=== PATIENT | female | born 1990 | race African-American/Black ===

== ENCOUNTER 2018-04-28 12:39 | Inpatient (IN) ==
[2018-04-28 13:33] LABS: AGAP 13; ALBUMIN 4.3 g/dL (3.5-5.0); ALKALINE PHOSPHATASE 44 U/L (32-104); BUN 9 mg/dL (8-22); CALCIUM 9.4 mg/dL (8.8-10.2); CHLORIDE 101 mmol/L (98-107); COSMO 272; CREATININE 0.7 mg/dL (0.5-0.9); ESTIMATED GFR > 60; GLUCOSE 115 mg/dL (70-104); GOT 14 U/L (10-30); GPT 20 U/L (10-36); POTASSIUM 3.6 mmol/L (3.5-5.1); SODIUM 136 mmol/L (136-145); TCO2 22 mmol/L (25-35); TOTAL PROTEIN 7.2 g/dL (6.3-8.3)
[2018-04-28] MEDS ORDERED: NS 1,000 ML IV ONE (13:36)
[2018-04-28] MEDS ORDERED: ZOFRAN IV ONE (13:36)
[2018-04-28 13:38] LABS: BASO# 0.02 X1000 (0.0-0.2); BASO% 0.3 % (0.0-0.8); EOS# 0.07 X1000 (0.0-0.7); HEMATOCRIT 38.3 % (37.0-47.0); IMM GRAN# 0.02 X1000 (0.0-0.04); IMM GRAN% 0.3 % (0.0-0.5); LYMPH% 51.7 % (20.5-51.1); MCH 29.1 PG (27-31); MCHC 33.9 g/dL (33-37); MCV 85.7 FL (81-99); MONO# 0.52 X1000 (0.11-0.59); MONO% 7.1 % (1.7-9.3); MPV 8.8 FL (7.4-10.4); NEUT# 2.92 X1000 (1.4-6.5); NEUT% 39.6 % (42.2-75.2); PLT 282 X1000 (130-400); RBC 4.47 XMIL (4.2-5.4); RDW 13.2 % (11.5-14.5); WBC 7.35 X1000 (4.8-10.8)
[2018-04-28 13:50] LABS: BILIRUBIN URINE NEGATIVE (NEGATIVE); BLOOD URINE TRACE (NEGATIVE); CLARITY CLEAR (CLEAR); COLOR YELLOW; GLUCOSE URINE NEGATIVE (NEGATIVE); KETONE URINE 2+(Moderate) mg/dL (NEGATIVE); LEUKOCYTES URINE TRACE (NEGATIVE); NITRITE URINE NEGATIVE (NEGATIVE); PROTEIN URINE TRACE mg/dL (NEGATIVE); SP GRAVITY URINE 1.015; UROBILINOGEN URINE NORMAL
[2018-04-28 14:02] LABS: URINE BACTERIA 2+ /HFP; URINE CAST GRANULAR PRESENT /LPF; URINE EPITHELIAL CELLS <10 /HPF (<10); URINE RBC <10 /HPF (<10)
[2018-04-28 14:04] LABS: URINE SOURCE CATH
[2018-04-28] MEDS ORDERED: PHENERGAN IV ONE ×3 (14:38→19:04)
[2018-04-28] MEDS ORDERED: SODIUM CHLORIDE 0.9% INJ ONE ×3 (14:38→19:04)
--- NOTE | 2018-04-28 15:30 | Diag Imaging Result Doc PS360 ---
EXAM: US OBS COMPLETE < 14 WKS - 04/28/2018 HISTORY: vag bleed, TECHNIQUE: Obstetrical ultrasound less than 14 weeks. Exam performed using transabdominal probe. According to the technologist, the patient refused imaging utilizing the endovaginal probe. COMPARISON: None. FINDINGS: The uterus measures 11.5 x 6.8 x 6.5 cm in size. There is no visible intrauterine . The endometrial echo appears to measure 2.2 cm in thickness. There is ill-defined heterogeneous material along the right side of the uterus. This appears to measure approximately 8.3 x 5.8 x 7 cm in size. Neither ovary is discretely visualized. There is no discrete free fluid identified. IMPRESSION: No visible intrauterine . Please note that imaging using the endovaginal probe may be more sensitive for the detection of early intrauterine than transabdominal imaging. Ill-defined heterogeneous material along right side of uterus. This is of uncertain etiology but conceivably could represent a mass and/or hematoma. Correlation with clinical evaluation is recommended. Electronically signed by Rojas Perez 04/28/2018 3:27 PM
--- NOTE | 2018-04-28 17:15 | Diag Imaging Result Doc PS360 ---
EXAM: US TRANSVAGINAL OB - 04/28/2018 HISTORY: vag bleeding, abd pain TECHNIQUE: Endovaginal obstetrical ultrasound less than 14 weeks COMPARISON: 04/28/2018 transabdominal obstetrical ultrasound is 14 weeks FINDINGS: There is no visible intrauterine . The dual layer endometrial thickness measures 2.7 cm. There is a 7.6 x 5.3 x 5 cm primarily solid appearing structure at the right side of the uterus. This has appearance somewhat similar to the uterus, with possible endometrial echo. This may represent the second horn of a bicornuate uterus, rather than a mass. If so, there also is no visible intrauterine in this second horn. Neither ovary is discretely visualized. There is a small amount of free fluid in the pelvis. IMPRESSION: The patient may have a bicornuate uterus. If so, there is no visible intrauterine in either horn. Neither ovary is discretely visualized. There is a small amount of free fluid in the pelvis. Correlation with serial quantitative beta hCG levels and follow-up ultrasound is recommended. Electronically signed by Rojas Perez 04/28/2018 5:12 PM
--- NOTE | 2018-04-28 18:15 | PROVIDER DOCUMENTATION ---
This chart was entered by Miriam Lipscomb Scribe, acting as scribe for Murali Mcdermott CRNP. HPI-General Adult - General Chief Complaint: Female Stated Complaint: 7WKS PREG. ABD PAIN Time Seen by Provider: 04/28/18 13:05 Source: patient Allergies/Adverse Reactions: Patient Allergies Allergy/AdvReac Type Severity Reaction Status Date / Time cefaclor [From Ceclor] Allergy Severe HIVES Verified 04/28/18 13:36 Home Medications: Home Medication List Medication Instructions Recorded Confirmed Last Taken Type Vit #76/Iron,Carb/FA 1 tab PO DAILY 04/28/18 04/28/18 04/27/18 History [Prenatabs Rx Tablet] - History of Present Illness -Gen Adult Nature of Presenting Problems: 27 y/o female presents to ED with abdominal cramping and syncope onset just prior to arrival. Pt reports vaginal spotting 3 days ago. Pt states her last menstrual period was 03/09/2018 and that she is 7 weeks . Pt reports she had a bowel movement, then lost consciousness when standing up afterwards. Pt is alert and oriented. Location of Pain/Injury: reports: abdomen Pain Radiation: reports: no radiation Quality of Pain: reports: cramping Severity: reports: mild Onset/Duration: reports: just prior to arrival, 3 days ago Timing: reports: still present Context/Activities at Onset: reports: none Modifying Factors: worse with: palpation Associated Symptoms: reports: syncope, other (abdominal cramping, vaginal spotting) Similar Symptoms Previously?: No Recently seen or treated by another doctor?: No Review of Systems - Adult - REVIEW OF SYSTEMS - ADULT Constitutional: denies: chills, fever Eyes: reports: no symptoms reported Ears, Nose, Mouth & Throat: reports: no symptoms reported Cardiovascular: denies: chest pain, palpitations Respiratory: denies: cough, shortness of breath Gastrointestinal: reports: abdominal pain. denies: diarrhea, nausea, vomiting Genitourinary: reports: other (vaginal spotting). denies: incontinence Musculoskeletal: denies: back pain, joint pain Integumentary: reports: no symptoms reported Neurological: reports: syncope. denies: dizziness/vertigo, seizure Psychiatric: reports: no symptoms reported Endocrine: reports: no symptoms reported Hematologic/Lymphatic: reports: no symptoms reported Allergic/Immunologic: reports: no symptoms reported All Other Systems: Reviewed and Negative Past History - Adult - PAST MEDICAL HISTORY-ADULT Review of Records: reports: Old Records Reviewed, Nursing Assessment Review, Medications Reviewed Major Childhood Illnesses: reports: denies history Cardiovascular: reports: denies history Respiratory: reports: denies history, asthma Gastrointestinal: reports: denies history Obstetrical/Gynecological: reports: denies history Genitourinary: reports: denies history Musculoskeletal: reports: denies history Neurological: reports: denies history Endocrine/Immune: reports: denies history Other Conditions: reports: denies history - PRIOR SURGERIES/PROCEDURES Surgical/Procedure History: reports: tonsillectomy - IMMUNIZATION STATUS Childhood Immunizations: See Nurse Assessment Flu Vaccine: See Nurse Assessment - FAMILY HISTORY Family History: reviewed, not pertinent - SOCIAL HISTORY Smoking: quit less than 1 year Substance Use: marijuana Alcohol Use Frequency: occasionally Living Situation: family Physical Exam-General - PHYSICAL EXAM-ADULT Initial Vital Signs Reviewed: Yes - CONSTITUTIONAL General Appearance: appears well, alert, no apparent distress - EYES Eyes: PERRL/EOMI, pink conjunctivae - HEAD, EARS, NOSE, MOUTH & THROAT HENMT: normocephalic/atraumatic, moist mucous membranes, normal ENT inspection - NECK Neck: non-tender, full range of motion - RESPIRATORY Respiratory: chest non-tender, lungs clear, normal breath sounds - CARDIOVASCULAR Cardiovascular: normal peripheral pulses, regular rate, rhythm - GASTROINTESTINAL (ABDOMEN) Abdominal Exam: normal bowel sounds, soft, tenderness (low abdominal tenderness) - MUSCULOSKELETAL Back Exam: normal inspection, no CVA tenderness Extremity: normal range of motion, non-tender, normal gait - SKIN Integumentary: normal color, warm/dry - NEUROLOGIC Neurologic: grossly normal - PSYCHIATRIC Psych/Mental Status: normal mood/affect, normal thought content, normal thought process Progress - PLAN OF CARE/RESULTS Progress/Plan/Lab Results: Vital Signs - 8 hr 04/28/18 12:41 Temperature 97.5 F L Pulse Rate 79 Respiratory Rate 18 Blood Pressure 108/74 O2 Sat by Pulse Oximetry 100 Bedside Urine ED: Urine Bedside Start: 04/28/18 13:39 Freq: Status: Active Protocol: Activity Type Activity Date Activity User E-Sign Co-Sign Detail Recorded Client Recorded Date Recorded By Document 04/28/18 13:39 [id number] 04/28/18 13:40 [id number] 04/28/18 13:39 Point of Care [Bedside Point of Care] -Lot # HCG [id number] - Results Positive -Control Line Visible? Yes -Additional Comment [id number] Laboratory Results - last 24 hr 04/28/18 04/28/18 04/28/18 12:55 12:55 12:55 WBC 7.35 RBC 4.47 Hgb 13.0 Hct 38.3 MCV 85.7 MCH 29.1 MCHC 33.9 RDW Std Deviation 13.2 Plt Count 282 MPV 8.8 Immature Gran % (Auto) 0.3 Neut % (Auto) 39.6 L Lymph % (Auto) 51.7 H [place] % (Auto) 7.1 Eos % (Auto) 1.0 Baso % (Auto) 0.3 Immature Gran # (Auto) 0.02 Neut # (Auto) 2.92 Lymph # (Auto) 3.80 H [place] # (Auto) 0.52 Eos # (Auto) 0.07 Baso # (Auto) 0.02 Sodium 136 Potassium 3.6 Chloride 101 Carbon Dioxide 22 L Anion Gap 13 BUN 9 Creatinine 0.7 Estimated GFR/1.73 m2 > 60 BUN/Creatinine Ratio 13 Glucose 115 H Calculated Osmolality 272 Calcium 9.4 Total Bilirubin 0.40 AST 14 ALT 20 Alkaline Phosphatase 44 Total Protein 7.2 Albumin 4.3 Globulin 3.0 Albumin/Globulin Ratio 1.0 Ser , Semi-Qnt 7848.0 Urine Color Urine Clarity Urine pH Ur Specific [place] Urine Protein Urine Ketones Urine Blood Urine Nitrite Urine Bilirubin Urine Urobilinogen Urine WBC Urine Glucose ABO/Rh RhIG Candidate? 04/28/18 04/28/18 12:55 13:15 WBC RBC Hgb Hct MCV MCH MCHC RDW Std Deviation Plt Count MPV Immature Gran % (Auto) Neut % (Auto) Lymph % (Auto) [place] % (Auto) Eos % (Auto) Baso % (Auto) Immature Gran # (Auto) Neut # (Auto) Lymph # (Auto) [place] # (Auto) Eos # (Auto) Baso # (Auto) Sodium Potassium Chloride Carbon Dioxide Anion Gap BUN Creatinine Estimated GFR/1.73 m2 BUN/Creatinine Ratio Glucose Calculated Osmolality Calcium Total Bilirubin AST ALT Alkaline Phosphatase Total Protein Albumin Globulin Albumin/Globulin Ratio Ser , Semi-Qnt Urine Color YELLOW Urine Clarity CLEAR Urine pH 7.0 Ur Specific [place] 1.015 Urine Protein TRACE A Urine Ketones 2+(Moderate) A Urine Blood TRACE Urine Nitrite NEGATIVE Urine Bilirubin NEGATIVE Urine Urobilinogen NORMAL Urine WBC TRACE A Urine Glucose NEGATIVE ABO/Rh B POSITIVE RhIG Candidate? NO Orders Category Date Time Status US OBS COMPLETE < 14 WKS [US] Stat Exams 04/28/18 13:06 Ordered CBC WITH DIFF [HEME] Stat Lab 04/28/18 12:55 Completed COMPREHENSIVE METABOLIC PANEL [CHEM] Stat Lab 04/28/18 12:55 Completed QUANT TEST Stat Lab 04/28/18 12:55 Completed RHOGAM WORKUP [BBK] Stat Lab 04/28/18 12:[address] W/POSS RFLX CULT [URINALYSIS] Stat Lab 04/28/18 13:15 Results 0.9% Sodium Chloride Inj [Ns] 1,000 ml Med 04/28/18 13:36 Active IV 999 mls/hr Ondansetron [Zofran] Med 04/28/18 13:36 Discontinued 4 mg IV NOW ONE Result Diagrams: 04/28/18 12:55 04/28/18 12:55 - REASSESSMENT Reassessment #1 Time Reassessed: 14:38 (Pt states she is still very nauseated. Reports she feels a lot of pressure like she needs to have a BM, but don't need to. Additonal meds ordered. Pt made aware of need for u/s ) Reassessment #2 Time Reassessed: 15:38 (Spoke with pt concerning u/s. States she did not refused transvaginal u/s. Called u/s tech and requested to return and complete transvaginal u/s as previously ordered. ) Reassessment #3 Time Reassessed: 17:20 (reviewed pt with Dr Diggs, who recommends consulting with OB on-call.) - ULTRASOUND (By Radiology) 1 US Study: Pelvic Impression: See EMR Report (No visible intrauterine . Please note that imaging using the endovaginal probe may be more sensitive for the detection of early intrauterine than transabdominal imaging. Ill-defined heterogeneous material along right side of uterus. This is of uncertain etiology but conceivably could represent a mass and/or hematoma. Correlation with clinical evaluation is recommended. Electronically signed by Rojas Perez 04/28/2018 3:27 PM) 2 US Study: Transvaginal Impression: See EMR Report (There is no visible intrauterine . The dual layer endometrial thickness measures 2.7 cm. There is a 7.6 x 5.3 x 5 cm primarily solid appearing structure at the right side of the uterus. This has appearance somewhat similar to the uterus, with possible endometrial echo. This may represent the second horn of a bicornuate uterus, rather than a mass. If so , there also is no visible intrauterine in this second horn. Neither ovary is discretely visualized. There is a small amount of free fluid in the pelvis. IMPRESSION: The patient may have a bicornuate uterus. If so, there is no visible intrauterine in either horn. Neither ovary is discretely visualized. There is a small amount of free fluid in the pelvis. Correlation with serial quantitative beta hCG levels and follow-up ultrasound is recommended. Electronically signed by Rojas Perez 04/28/2018 5:12 PM) - CONSULTS/PCP/HOSPITALIST Notification #1 *Consult/PCP/Hospitalist*: Dr Rajput, OB on-call Time Discussed: 17:29 Consult Disposition: Will see in ED #2 Consult: Dr Rajput Time Discussed: 18:05 (Examined pt in ER, states he wants to admit pt to r/o tubal ) Consult Disposition: Admit Departure - Departure Date of Disposition Decision: 04/28/18 Time of Disposition Decision: 18:05 DIAGNOSIS: Tubal Qualifiers: Intrauterine status: unspecified Laterality: unspecified laterality Qualified Code(s): O00.109 - Unspecified tubal without intrauterine Disposition: ADMITTED INPATIENT 09 Certified Medical Emergency: Emergent Condition: Fair Referrals and Follow-Ups: None,PCP [Primary Care Provider] - - Critical Care Note This patient required my direct & personal management of CC.: No Attestation - Physician/ GARY Attestation Patient care was provided by Advanced Practice Provider:: Yes Advanced Practice Provider:: Murali Mcdermott Advanced Practice Provider documentation review:: The Mid-level provider documentation, treatment plan and medical decision making was reviewed by the physician who agrees with all treatment and medical decision making by the MLP. The physician spent face to face time with patient:: No Advanced Practice Provider documentation review:: Supervising physician onsite and consulted in the evaluation and care of this patient. The physician did not have a face to face encounter with the patient. This chart was documented by the indicated scribe, (Miriam Lipscomb Scribe) and accurately reflects the services I performed and decisions made by , Murali Mcdermott CRNP, as attested by the provider's signature.
[2018-04-28] MEDS ORDERED: D5 LR 1,000 ML IV ONE (18:41)
[2018-04-28] MEDS ORDERED: DEMEROL IV ONE ×2 (18:49→19:04)
--- NOTE | 2018-04-28 19:05 | HISTORY AND PHYSICAL ---
CHIEF COMPLAINT: Lower abdominal pain and spotting. HPI: A 27-year-old 2, para 1, last menstrual period about March 09 making her about 7 weeks gestation, presents complaining of spotting off and on since March and then began having some lower abdominal pain earlier today. The pain began in her lower suprapubic quadrant but then elevated to her upper abdomen. She has not had any blood or clots. She was not having any pain prior to today. SYSTEMS REVIEW: She has been having some nausea and vomiting. Has been unable to keep anything down today. PAST [employer] PERSON HISTORY: She has had Chlamydia in the past. PAST SURGICAL HISTORY: Negative. PAST MEDICAL HISTORY: Negative. CURRENT MEDICATIONS: vitamins. ALLERGIES: Ceclor. PHYSICAL EXAM: Blood pressure is 104/66, pulse is 98. GENERAL APPEARANCE: Mildly ill-appearing patient in mild distress. HEENT: Normocephalic, atraumatic. CARDIOVASCULAR: Regular rate and rhythm. LUNGS: Clear to auscultation. ABDOMEN: Soft, mildly tender to palpation. PELVIS: She does have cervical motion tenderness. She is diffusely tender to palpation in the pelvis. When she initially presented to the emergency room she had a transabdominal ultrasound. This showed a uterus measuring 11.5 x 6.8 x 6.5 cm with a 2.2 cm endometrium. Had also described an ill-defined heterogenous area of material to the right side of the uterus measuring 8.3 x 5.8 x 7 cm. Neither ovary was seen. No free fluid. This mass adjacent to the uterus was felt possibly consistent with a mass or hematoma and the recommendation was to repeat a serial beta HCG and followup ultrasound in a couple of days. The tech then returned to do the vaginal probe ultrasound and this ultrasound felt like the mass adjacent to the uterus was possibly a bicornuate uterus again with no IUP seen. There was a small amount of free fluid noted. Beta HCG was 7848. Hemoglobin is 13, hematocrit 38.3, platelets 282,000. ASSESSMENT: Examination is concerning for ectopic . However, the patient is hemodynamically stable at this point. The ultrasounds are fairly confusing. PLAN: At the minimum, she will be admitted for serial beta HCG and serial hemoglobins. Repeat ultrasound in a.m. We discussed the possibility of proceeding with laparoscopy or laparotomy in the event that she begins to deteriorate. cc: Bubba Rajput MD
[2018-04-29 01:09] LABS: BASO# 0.01 X1000 (0.0-0.2); BASO% 0.1 % (0.0-0.8); HEMATOCRIT 29.1 % (37.0-47.0); HEMOGLOBIN 9.7 g/dL (12.0-16.0); IMM GRAN# 0.03 X1000 (0.0-0.04); IMM GRAN% 0.3 % (0.0-0.5); LYMPH# 1.78 X1000 (1.2-3.4); LYMPH% 17.3 % (20.5-51.1); MCH 28.9 PG (27-31); MCHC 33.3 g/dL (33-37); MCV 86.6 FL (81-99); MONO# 0.45 X1000 (0.11-0.59); MONO% 4.4 % (1.7-9.3); MPV 8.9 FL (7.4-10.4); NEUT# 8.02 X1000 (1.4-6.5); NEUT% 77.9 % (42.2-75.2); PLT 226 X1000 (130-400); RBC 3.36 XMIL (4.2-5.4); RDW 12.8 % (11.5-14.5); WBC 10.29 X1000 (4.8-10.8)
--- NOTE | 2018-04-29 01:59 | OB/GYN PROGRESS NOTE ---
Progress Note [employer] - . Patient Problems: Current Active Problems Problem Status Onset Tubal Acute [employer] Progress Note: Vital Signs - 24 hr 04/28/18 12:41 04/28/18 16:00 04/28/18 18:14 Temperature 97.5 F L 99.5 F Pulse Rate 79 98 H 96 H Respiratory Rate 18 20 20 Blood Pressure 108/74 104/86 104/76 O2 Sat by Pulse Oximetry 100 98 98 04/28/18 20:49 04/29/18 00:00 Temperature 98.6 F 98.4 F Pulse Rate 98 H 92 H Respiratory Rate 20 18 Blood Pressure 96/52 103/59 O2 Sat by Pulse Oximetry 100 100 Bedside Urine ED: Urine Bedside Start: 04/28/18 13:39 Freq: Status: Complete Protocol: Activity Type Activity Date Activity User E-Sign Co-Sign Detail Recorded Client Recorded Date Recorded By Document 04/28/18 13:39 [id number] 04/28/18 13:40 [id number] Edit Status 04/28/18 22:56 [id number] Active=>Complete [id number] 04/28/18 22:56 [id number] 04/28/18 13:39 Point of Care [Bedside Point of Care] -Lot # HCG [id number] - Results Positive -Control Line Visible? Yes -Additional Comment [id number] Laboratory Results - last 24 hr 04/28/18 04/28/18 04/28/18 12:55 12:55 12:55 WBC 7.35 RBC 4.47 Hgb 13.0 Hct 38.3 MCV 85.7 MCH 29.1 MCHC 33.9 RDW Std Deviation 13.2 Plt Count 282 MPV 8.8 Immature Gran % (Auto) 0.3 Neut % (Auto) 39.6 L Lymph % (Auto) 51.7 H [place] % (Auto) 7.1 Eos % (Auto) 1.0 Baso % (Auto) 0.3 Immature Gran # (Auto) 0.02 Neut # (Auto) 2.92 Lymph # (Auto) 3.80 H [place] # (Auto) 0.52 Eos # (Auto) 0.07 Baso # (Auto) 0.02 Sodium 136 Potassium 3.6 Chloride 101 Carbon Dioxide 22 L Anion Gap 13 BUN 9 Creatinine 0.7 Estimated GFR/1.73 m2 > 60 BUN/Creatinine Ratio 13 Glucose 115 H Calculated Osmolality 272 Calcium 9.4 Total Bilirubin 0.40 AST 14 ALT 20 Alkaline Phosphatase 44 Total Protein 7.2 Albumin 4.3 Globulin 3.0 Albumin/Globulin Ratio 1.0 Ser , Semi-Qnt 7848.0 Urine Source Urine Color Urine Clarity Urine pH Ur Specific [place] Urine Protein Urine Ketones Urine Blood Urine Nitrite Urine Bilirubin Urine Urobilinogen Urine Microscopic RBC Urine WBC Urine Microscopic WBC Ur Epithelial Cells Urine Bacteria Urine Casts Urine Glucose Blood Type ABO/Rh Antibody Screen RhIG Candidate? 04/28/18 04/28/18 04/28/18 12:55 13:15 18:46 WBC RBC Hgb Hct MCV MCH MCHC RDW Std Deviation Plt Count MPV Immature Gran % (Auto) Neut % (Auto) Lymph % (Auto) [place] % (Auto) Eos % (Auto) Baso % (Auto) Immature Gran # (Auto) Neut # (Auto) Lymph # (Auto) [place] # (Auto) Eos # (Auto) Baso # (Auto) Sodium Potassium Chloride Carbon Dioxide Anion Gap BUN Creatinine Estimated GFR/1.73 m2 BUN/Creatinine Ratio Glucose Calculated Osmolality Calcium Total Bilirubin AST ALT Alkaline Phosphatase Total Protein Albumin Globulin Albumin/Globulin Ratio Ser , Semi-Qnt Urine Source CATH Urine Color YELLOW Urine Clarity CLEAR Urine pH 7.0 Ur Specific [place] 1.015 Urine Protein TRACE A Urine Ketones 2+(Moderate) A Urine Blood TRACE Urine Nitrite NEGATIVE Urine Bilirubin NEGATIVE Urine Urobilinogen NORMAL Urine Microscopic RBC <10 Urine WBC TRACE A Urine Microscopic WBC 5-10 Ur Epithelial Cells <10 Urine Bacteria 2+ Urine Casts GRANULAR PRESENT Urine Glucose NEGATIVE Blood Type B POSITIVE ABO/Rh B POSITIVE Antibody Screen NEGATIVE RhIG Candidate? NO 04/28/18 04/28/18 04/29/18 19:13 21:45 00:23 WBC 10.29 RBC 3.36 L Hgb 11.4 L 9.9 L 9.7 L Hct 29.1 L D MCV 86.6 MCH 28.9 MCHC 33.3 RDW Std Deviation 12.8 Plt Count 226 MPV 8.9 Immature Gran % (Auto) 0.3 Neut % (Auto) 77.9 H Lymph % (Auto) 17.3 L [place] % (Auto) 4.4 Eos % (Auto) 0.0 Baso % (Auto) 0.1 Immature Gran # (Auto) 0.03 Neut # (Auto) 8.02 H Lymph # (Auto) 1.78 [place] # (Auto) 0.45 Eos # (Auto) 0.00 Baso # (Auto) 0.01 Sodium Potassium Chloride Carbon Dioxide Anion Gap BUN Creatinine Estimated GFR/1.73 m2 BUN/Creatinine Ratio Glucose Calculated Osmolality Calcium Total Bilirubin AST ALT Alkaline Phosphatase Total Protein Albumin Globulin Albumin/Globulin Ratio Ser , Semi-Qnt Urine Source Urine Color Urine Clarity Urine pH Ur Specific [place] Urine Protein Urine Ketones Urine Blood Urine Nitrite Urine Bilirubin Urine Urobilinogen Urine Microscopic RBC Urine WBC Urine Microscopic WBC Ur Epithelial Cells Urine Bacteria Urine Casts Urine Glucose Blood Type ABO/Rh Antibody Screen RhIG Candidate? Reassessing patient secondary to decrease in hemoglobin. Patient reports pain is unchanged. she is still having tenderness in the right lower quadrant. She has not had any more pain medication since she was seen in the Emergency Room. No nausea vomiting. AFVSS [place]: AAOx3 in mild distress, obese HEENT: NCAT CV: S1 S2 normal Lungs: clear Abd: normal bowel sounds. tenderness in RLQ; Ext: no edema Labs reviewed. Hemoglobin decreased from 13 to 11.4 to 9.9 to 9.7; repeat expectedat 6 am Ultrasound repeat - will try to get at 6AM A/P Possible Ectopic abdominal pain Ultrasound repeat this am for reevaluation; labs repeat planned at 6 am. Discussed with patient the possible need for laparoscopy or exploratory laparotomy for evaluation of abdominal pain and evaluation of mass close to the right side of the uterus vs ectopic. Based on decreasing hemoglobin decrease, patient has been counselled and consented for blood products as well as surgical intervention. Patient expresses understanding of care plan.
--- NOTE | 2018-04-29 07:45 | Diag Imaging Result Doc PS360 ---
EXAM: US PELVIC NON-OB COMPLETE HISTORY: possible ectopic TECHNIQUE: Pelvic ultrasound COMPARISON: None. FINDINGS: The uterus measures 10.6 x 6.1 x 5.3 cm. The endometrium is thickened measuring 1.8 cm with the two gallagher combined. No intrauterine gestational sac. The left ovary is not identified. Moderate amount of free fluid and debris in the pelvis large complex area in the right adnexa measuring approximately 6 x 10 cm. IMPRESSION: No intrauterine identified. Large complex area in the right adnexa as well as free fluid and debris in the pelvis may indicate a right-sided ectopic. The ordering physician is being called with the results. Electronically signed by Anuel Carpenter 04/29/2018 7:42 AM
[2018-04-29] MEDS ORDERED: VERSED ONE (07:58)
[2018-04-29] MEDS ORDERED: FENTANYL ONE (07:58)
[2018-04-29] MEDS ORDERED: XYLOCAINE-MPF 2% ONE (07:58)
[2018-04-29] MEDS ORDERED: DIPRIVAN 1% ONE (07:58)
[2018-04-29] MEDS ORDERED: QUELICIN ONE (08:04)
[2018-04-29] MEDS ORDERED: SODIUM CHLORIDE 0.9% INJ ONE (08:07)
[2018-04-29] MEDS ORDERED: PEPCID IV ONE (08:07)
[2018-04-29] MEDS ORDERED: REGLAN IV ONE (08:08)
[2018-04-29] MEDS ORDERED: NS 1,000 ML ONE (08:19)
[2018-04-29] MEDS ORDERED: KEFZOL 2 GM/D5W 2 GM/50 ML IVPB ONE (08:28)
[2018-04-29] MEDS ORDERED: NS 2,000 ML ONE (08:45)
[2018-04-29] MEDS ORDERED: ZOFRAN ONE (08:56)
[2018-04-29] MEDS ORDERED: DECADRON ONE (08:56)
[2018-04-29] MEDS ORDERED: ROBINUL ONE (09:14)
[2018-04-29] MEDS ORDERED: NEOSTIGMINE ONE (09:14)
[2018-04-29] MEDS ORDERED: OFIRMEV 1000 MG/ISOTONIC SOLN 1,000 MG/100 ML BOTTLE ONE (09:36)
[2018-04-29] MEDS ORDERED: AMBIEN PO PRN (09:56)
[2018-04-29] MEDS ORDERED: NORCO-10 PO PRN (09:56)
[2018-04-29] MEDS ORDERED: MORPHINE IM PRN (09:56)
[2018-04-29] MEDS ORDERED: ZOFRAN IV PRN (09:56)
[2018-04-29] MEDS ORDERED: PHENERGAN IM PRN (09:56)
[2018-04-29] MEDS: LR 1,000 ML IV SCH (10:00)
[2018-04-29] MEDS: DEMEROL ONE ×2 (10:00→16:27)
[2018-04-29] MEDS ORDERED: VENTOLIN HFA INH PRN (10:06)
[2018-04-29 10:29] LABS: BILIRUBIN URINE NEGATIVE (NEGATIVE); BLOOD URINE NEGATIVE (NEGATIVE); GLUCOSE URINE NEGATIVE (NEGATIVE); KETONE URINE 3+(Large) mg/dL (NEGATIVE); LEUKOCYTES URINE TRACE (NEGATIVE); NITRITE URINE NEGATIVE (NEGATIVE); PROTEIN URINE TRACE mg/dL (NEGATIVE); SP GRAVITY URINE 1.025; URINE WBC <10 /HPF (<10); UROBILINOGEN URINE NORMAL
[2018-04-29 10:30] LABS: CLARITY VERY CLOUDY (CLEAR); COLOR YELLOW; URINE EPITHELIAL CELLS <10 /HPF (<10); URINE RBC <10 /HPF (<10); URINE SOURCE CATH
[2018-04-29] MEDS: MYLICON PO SCH ×4 (13:31→20:43)
[2018-04-29 14:14] LABS: BASO# 0.01 X1000 (0.0-0.2); BASO% 0.1 % (0.0-0.8); HEMATOCRIT 22.6 % (37.0-47.0); HEMOGLOBIN 7.5 g/dL (12.0-16.0); IMM GRAN# 0.02 X1000 (0.0-0.04); IMM GRAN% 0.2 % (0.0-0.5); LYMPH# 0.94 X1000 (1.2-3.4); LYMPH% 11.2 % (20.5-51.1); MCH 29.2 PG (27-31); MCHC 33.2 g/dL (33-37); MCV 87.9 FL (81-99); MONO# 0.17 X1000 (0.11-0.59); MPV 8.6 FL (7.4-10.4); NEUT# 7.25 X1000 (1.4-6.5); NEUT% 86.5 % (42.2-75.2); PLT 181 X1000 (130-400); RBC 2.57 XMIL (4.2-5.4); RDW 12.9 % (11.5-14.5); WBC 8.39 X1000 (4.8-10.8)
[2018-04-29 14:15] LABS: LYMPHS 11 % (21-51); MONO 2 % (1-9); SEGS 87 % (42-75)
--- NOTE | 2018-04-29 14:41 | OPERATIVE NOTE ---
PROCEDURE DATE: 04/29/2018 PREOPERATIVE DIAGNOSIS: 1. Right ectopic . 2. Hemoperitoneum. POSTOPERATIVE DIAGNOSIS: 1. Right ectopic . 2. Hemoperitoneum. PROCEDURE: Emergency Exploratory laparotomy with right partial salpingectomy and evacuation of hemoperitoneum. SURGEON: Rustam Sanches III, MD. ASSIST: Robel Garrett DO. ANESTHESIA: General, Dr. Lazcano. FINDINGS: Hemoperitoneum. Right ectopic . Normal-appearing uterus as well as both ovaries and normal-appearing left tube. COMPLICATIONS: None. ESTIMATED BLOOD LOSS: 750 mL 50 of which was from surgery, 700 of which was from old clotted blood. DRAINS: Frazier to straight drain. COUNTS: All counts were correct x3. INDICATIONS: Patient is a 27-year-old black female, G2, P1, was diagnosed with ectopic with increasing intraabdominal fluid content as well as debris and as well as increasing pain and hemoglobin that was falling. Clayton in the best interest of the patient we should proceed immediately with a laparotomy for treatment of a right ectopic . Patient counseled about the risks of surgery including bleeding, infection, bowel or bladder injury. DESCRIPTION OF PROCEDURE: Patient was taken to the OR, placed in supine position. General anesthesia was employed. Then patient was prepped and draped in a sterile fashion with placement of Frazier catheter. Then a Pfannenstiel skin incision was made lower abdomen using a scalpel. This was carried down sharply to the fascia layer. Small sae was made in the rectus fascia. This was extended bilaterally by curved Perales scissors. Then blunt and sharp dissection of the superior and inferior aspects of the rectus fascia was accomplished then the rectus muscles divided in the midline. Peritoneal layer was entered bluntly and upon entry into the peritoneal layer was noted that there was a great deal of old clotted blood. Extended the peritoneal incision superiorly and inferiorly with Metzenbaum scissors and then proceeded to use irrigation and clear out the clots in the peritoneum. After exploring the lower abdomen and clearing out as many clots as possible then the O'Omar-O'Clinton retractor was placed into the abdomen and the uterus was identified, right fallopian tube was seen and ectopic was identified. Juan clamp was placed around this and then excised the portion of the fallopian tube including the distal end and then this was excised and placed in a specimen container. This was then ligated using 0 Vicryl in a transfixing stitch. 3-0 Vicryl was then used along the mesosalpinx where there was a tear from Mcconnell placement and good hemostasis was noted there as well. Inspection of the pelvic cavity showed 2 normal appearing ovaries and no other sign of disease and continued irrigation to clear out the clots from upper abdomen and lower abdomen. At this point in time, the peritoneal layer was then closed using 2-0 chromic in a running fashion x1. The rectus muscle was then reapproximated using interrupted stitches of 2-0 chromic. Electrocautery was used to obtain hemostasis around the rectus fascia and then the fascia was closed using 0 Maxon in a running fashion x1. Irrigation was then employed in the subcutaneous layer which was then reapproximated using 2-0 chromic in a running fashion x1 and then the skin was reapproximated using gloria. Patient tolerated the procedure well, was taken recovery room stable condition. All counts were correct x3. cc: MD Bubba Baker III, MD MTDD
[2018-04-29] MEDS: D5 LR 1,000 ML IV SCH (16:23)
[2018-04-29] MEDS: OFIRMEV 1000 MG/ISOTONIC SOLN 1,000 MG/100 ML BOTTLE IV SCH ×2 (16:29→22:56)
[2018-04-29] MEDS ORDERED: NS 500 ML ONE (18:10)
[2018-04-29] MEDS: COLACE PO SCH (20:43)
[2018-04-29] MEDS: PERIDEX MT SCH (22:55)
[2018-04-30] MEDS: OFIRMEV 1000 MG/ISOTONIC SOLN 1,000 MG/100 ML BOTTLE IV SCH ×3 (04:51→16:22)
[2018-04-30] MEDS: LR 1,000 ML IV SCH ×4 (05:13→05:19)
[2018-04-30] MEDS: D5 LR 1,000 ML IV SCH (05:17)
[2018-04-30] MEDS ORDERED: SALINE LOCK IV FLUID XX ONE (07:22)
[2018-04-30 08:33] LABS: BASO# 0.02 X1000 (0.0-0.2); BASO% 0.2 % (0.0-0.8); EOS# 0.02 X1000 (0.0-0.7); EOS% 0.2 % (0.0-10.0); HEMATOCRIT 26.1 % (37.0-47.0); HEMOGLOBIN 8.8 g/dL (12.0-16.0); IMM GRAN# 0.02 X1000 (0.0-0.04); IMM GRAN% 0.2 % (0.0-0.5); LYMPH# 3.12 X1000 (1.2-3.4); MCH 29.3 PG (27-31); MCHC 33.7 g/dL (33-37); MONO# 0.52 X1000 (0.11-0.59); MONO% 5.5 % (1.7-9.3); NEUT# 5.76 X1000 (1.4-6.5); NEUT% 60.9 % (42.2-75.2); PLT 180 X1000 (130-400); RDW 13.1 % (11.5-14.5); WBC 9.46 X1000 (4.8-10.8)
[2018-04-30] MEDS: NORCO-5 PO PRN (09:56)
[2018-04-30] MEDS: MYLICON PO SCH ×4 (09:56→21:33)
[2018-04-30] MEDS: COLACE PO SCH ×2 (09:56→21:33)
[2018-04-30] MEDS: PERIDEX MT SCH ×2 (09:58→21:33)
[2018-05-01 01:10] VITALS: BP 104/61
[2018-05-01] MEDS: NORCO-5 PO PRN (02:45)
[2018-05-01] MEDS: OFIRMEV 1000 MG/ISOTONIC SOLN 1,000 MG/100 ML BOTTLE IV SCH ×2 (02:46→07:40)
[2018-05-01] MEDS: COLACE PO SCH (09:21)
[2018-05-01] MEDS: PERIDEX MT SCH (09:21)
[2018-05-01] MEDS: MYLICON PO SCH (09:22)
--- NOTE | 2018-05-01 11:50 | DISCHARGE SUMMARY ---
ADMISSION DATE: 04/28/2018 DISCHARGE DATE: 05/01/2018 ADMISSION DIAGNOSIS: Abdominal pain, possible ectopic . FINAL DIAGNOSES: 1. Ruptured right ectopic . 2. Anemia secondary to acute blood loss. PROCEDURES: Exploratory laparotomy with right partial salpingectomy for ruptured ectopic , as well as evacuation of hemoperitoneum. BRIEF HISTORY OF THE PRESENT ILLNESS: The patient is a 27-year-old black female, G 2, P 1, last menstrual period on March 09, who presents with complaint of spotting, as well as some lower abdominal pain. The initial ultrasound obtained was unclear as to ectopic or possible bicornuate uterus. The patient has also been having some nausea and vomiting. 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 PAST SURGICAL HISTORY: None. MEDICAL HISTORY: Unremarkable. CURRENT MEDICATIONS: vitamins. PHYSICAL EXAMINATION: Vital Signs: Blood pressure 104/66, pulse of 98. HEENT: Normocephalic, atraumatic. Cardiovascular: Regular rate and rhythm. Lungs: Clear to auscultation. Abdomen: Soft and mildly tender to palpation. Pelvis: No cervical motion tenderness and diffuse tenderness to palpation in the adnexal areas. LABS AND X-RAYS: Ultrasound in the ER showed a uterus measuring 11 cm with a 2.2, endometrial stripe. Quantitative value was 7800. At that point in time upon initial presentation, hemoglobin was 13 and hematocrit 38.3. ASSESSMENT AND PLAN: Concern for possible ectopic . The patient will be admitted and do serial ultrasounds, as well as laboratory studies to evaluate the HCT and hemoglobin levels. Patient was confronted with the possibility of a surgery in the case of a ruptured ectopic . Patient's hemoglobin was noted to drop, and followup ultrasound on the morning of 2018 revealed a large amount of fluid and debris and a large right adnexal mass consistent with an ectopic . Patient was then consented for laparotomy for ruptured ectopic and type and cross 2 units of blood. The surgery was noted to have significant intra- abdominal bleeding with at least 700 mL of old clot and ruptured ectopic right tubal and right partial salpingectomy was performed at the time of surgery. Good hemostasis was noted at that time. We will continue to follow the hemoglobin postop, and she dropped to 7.5, 4 hours after her surgery, so she was transfused 2 units of packed red blood cells. After receiving the packed red blood cells, her hemoglobin increased to 8.8, and patient reported that she felt better. She was advanced on her diet slowly, became ambulatory and, over the course of the next 2 days, was able to advance her diet and have bowel activity. On postop day #2, she reported feeling well, having no issues as far as getting up and moving around and tolerating p.o. She was able to handle oral pain medication. It was felt at this point in time patient could be discharged home. DISCHARGE PLANS: The patient will be discharged home. Have her followup on 05/06/2018 for staple removal. She was instructed on lifting precautions for the next 6 weeks. The patient is to call for any other problems. She was given prescription for clindamycin 150 mg dispensed 14 one p.o. b.i.d., also Clymer 7.5 dispensed 20 no refills, Colace 100 mg dispense 30 with 1 refill, and iron sulfate dispense 30 one p.o. daily with 1 refill. cc: MD Bubba Baker III, MD
== END 2018-05-01 09:50 | disposition home or self-care (01) | DRG 817 ==
LOC: P.ED 12:39 → P.MEDSURG 12:39 → OBSVTOIN 20:28
PROVIDERS: ADMIT Obstetrics & Gynecology; ATTEND Obstetrics & Gynecology
CPT/HCPCS: 36430; 76801; 76817; 76856; 80053; 81001; 81025; 84702; 85018; 85025; 86850; 86900; 86901; 86920; 87077; 87088; 87186; 94799; 96374; 96375; 96376; 99285; A9270; J0131; J0330; J0690; J1100; J2175; J2250; J2270; J2405; J2550; J3010; J7030; J7040; J7120; J7121; P9016

== ENCOUNTER 2019-03-25 22:02 | Inpatient (IN) ==
--- NOTE | 2019-03-25 22:19 | PROVIDER DOCUMENTATION ---
This chart was entered by Nisa Gonzales Scribe, acting as scribe for Gaurav Niño MD. HPI-Female /OB/Breast - General Stated Complaint: OB Time Seen by Provider: 03/25/19 22:04 Source: reports: patient Allergies/Adverse Reactions: Patient Allergies Allergy/AdvReac Type Severity Reaction Status Date / Time cefaclor [From Ceclor] Allergy Severe HIVES Verified 03/21/19 08:58 Home Medications: Home Medication List Medication Instructions Recorded Confirmed Last Taken Type multivit no.42-iron 38 1 cap PO QDAY 10/09/18 03/21/19 Unknown History mg-methyltetrahydfolate 1 mg-dha 225 mg capsule - History of Present Illness-Female /OB Nature of Presenting Problem: pt is a 28 yr old female presenting with complaint of contractions onset 1929, fluid leaking, mucus plug lost and bloody show. pt reports she is 39w3d, with ectopic 05/2018. pt reports contractions getting closer and stronger, now 6min apart Does patient report she is ?: Yes Quality of Pain: reports: cramping Severity in ED: reports: moderate Onset/Duration: reports: this evening (1929) Timing: reports: still present Context/Activities at Onset: reports: light activity Vaginal Symptoms: reports: discharge (bloody show, mucus plug lost) Vaginal Bleeding Amount: None Urinary Symptoms: reports: no symptoms Related Symptoms: reports: vaginal fluid leakage, uterine contractions Leakage of Fluid: mild (while in bathtub) Modifying Factors: improves with: nothing Associated Symptoms: denies: fever/chills, nausea, vomiting - LMP/ History Menstrual Status: currently : 3 Para: 1 : 1 Care: OB doctor Contractions/Pelvic Pain: reports: moderate, regular Contraction Frequency (every____min): 6 Contraction Duration (mins): 1 Review of Systems - Adult - REVIEW OF SYSTEMS - ADULT Constitutional: reports: no symptoms reported Eyes: reports: no symptoms reported Ears, Nose, Mouth & Throat: reports: no symptoms reported Cardiovascular: reports: no symptoms reported Respiratory: reports: no symptoms reported Gastrointestinal: reports: abdominal pain Genitourinary: reports: no symptoms reported Musculoskeletal: reports: no symptoms reported Integumentary: reports: no symptoms reported Neurological: reports: no symptoms reported Psychiatric: reports: no symptoms reported Endocrine: reports: no symptoms reported Hematologic/Lymphatic: reports: no symptoms reported Allergic/Immunologic: reports: no symptoms reported All Other Systems: Reviewed and Negative Past History - Adult - PAST MEDICAL HISTORY-ADULT Review of Records: reports: Old Records Reviewed, Nursing Assessment Review, Medications Reviewed, Social history reviewed & non-contributory. Major Childhood Illnesses: reports: denies history Cardiovascular: reports: denies history Respiratory: reports: asthma Gastrointestinal: reports: denies history Obstetrical/Gynecological: reports: denies history Genitourinary: reports: denies history Musculoskeletal: reports: denies history Neurological: reports: denies history Endocrine/Immune: reports: denies history Other Conditions: reports: denies history - PRIOR SURGERIES/PROCEDURES Surgical/Procedure History: reports: tonsillectomy - IMMUNIZATION STATUS Childhood Immunizations: See Nurse Assessment Flu Vaccine: See Nurse Assessment - FAMILY HISTORY Family History: reviewed, not pertinent - SOCIAL HISTORY Living Situation: family Physical Exam-General - PHYSICAL EXAM-ADULT Initial Vital Signs Reviewed: Yes - CONSTITUTIONAL General Appearance: appears well, alert, no apparent distress, obese - EYES Eyes: PERRL/EOMI - HEAD, EARS, NOSE, MOUTH & THROAT HENMT: normocephalic/atraumatic, moist mucous membranes - NECK Neck: non-tender, full range of motion, supple, normal inspection - RESPIRATORY Respiratory: lungs clear, normal breath sounds - CARDIOVASCULAR Cardiovascular: normal peripheral pulses, regular rate, rhythm - GASTROINTESTINAL (ABDOMEN) Abdominal Exam: other ( abdomen) - GENITOURINARY Female Genitalia/Pelvic Exam: blood, other (2cm anterior cervix,) - LYMPHATIC Lymphatic: no adenopathy - MUSCULOSKELETAL Back Exam: normal inspection Extremity: normal range of motion, non-tender, normal gait, normal inspection - SKIN Integumentary: normal color, normal turgor, warm/dry - NEUROLOGIC Neurologic: grossly normal, no motor/sensory deficits - PSYCHIATRIC Psych/Mental Status: normal mood/affect Progress - PLAN OF CARE/RESULTS Progress/Plan/Lab Results: Vital Signs - 8 hr 03/25/19 22:06 Temperature 98.2 F Pulse Rate 91 H Respiratory Rate 20 Blood Pressure 142/81 O2 Sat by Pulse Oximetry 98 - CONSULTS/PCP/HOSPITALIST Notification #1 *Consult/PCP/Hospitalist*: Dr Garrett Time Discussed: 22:10 Reason/Comments: plan of care for pt transfer Consult Disposition: other (transfer to L/D at [facility]) Departure - Departure Date of Disposition Decision: 03/25/19 Time of Disposition Decision: 22:18 DIAGNOSIS: Active labor at term Disposition: ADMITTED INPATIENT 09 Certified Medical Emergency: Emergent Condition: Fair Referrals and Follow-Ups: None,PCP [Primary Care Provider] - - Critical Care Note This patient required my direct & personal management of CC.: No Attestation - Physician/ GARY Attestation Patient care was provided by Advanced Practice Provider:: No The physician spent face to face time with patient:: Yes Advanced Practice Provider documentation review:: Supervising physician onsite and consulted in the evaluation and care of this patient. The physician did have a face to face encounter with the patient. This chart was documented by the indicated scribe, (Nisa Gonzales, Anderson) and accurately reflects the services I performed and decisions made by me, Gaurav Niño MD, as attested by the provider's signature.
[2019-03-25 23:18] LABS: URINE SOURCE VOIDED
[2019-03-25 23:22] LABS: BILIRUBIN URINE NEGATIVE (NEGATIVE); BLOOD URINE NEGATIVE (NEGATIVE); COLOR YELLOW; GLUCOSE URINE NEGATIVE (NEGATIVE); KETONE URINE NEGATIVE (NEGATIVE); LEUKOCYTES URINE SMALL (NEGATIVE); NITRITE URINE NEGATIVE (NEGATIVE); PH URINE 6.5; PROTEIN URINE TRACE mg/dL (NEGATIVE); SP GRAVITY URINE 1.025; TURBIDITY URINE CLEAR (CLEAR); UROBILINOGEN URINE 2 mg/dL (NORMAL)
[2019-03-25] MEDS ORDERED: PEPCID IV PRN (23:40)
[2019-03-25] MEDS ORDERED: PEPCID PO ONE (23:40)
[2019-03-25] MEDS ORDERED: STADOL IV PRN (23:40)
[2019-03-25] MEDS ORDERED: REGLAN PO ONE (23:40)
[2019-03-25] MEDS ORDERED: ZOFRAN IV PRN (23:40)
[2019-03-25] MEDS ORDERED: PEPCID PO PRN (23:40)
[2019-03-25] MEDS ORDERED: PITOCIN 30 UNITS/NS 30 UNIT/500 ML IV.SOLN IV SCH (23:45)
[2019-03-25] MEDS ORDERED: LR 1,000 ML IV SCH (23:45)
[2019-03-25] MEDS ORDERED: SODIUM CHLORIDE 0.9% INJ SCH (23:45)
[2019-03-25 23:51] LABS: UR AMPHETAMINES QUAL NONE DETECTED (NONE DETECT); UR BARBITUATES QUAL NONE DETECTED (NONE DETECT); UR BENZODIAZEPIN QUAL NONE DETECTED (NONE DETECT); UR CANNABINOIDS QUAL NONE DETECTED (NONE DETECT); UR COCAINE QUAL NONE DETECTED (NONE DETECT); UR METHADONE QUAL NONE DETECTED (NONE DETECT); UR OPIATES QUAL NONE DETECTED (NONE DETECT); UR OXYCODONE QUAL NONE DETECTED (NONE DETECT); UR PCP QUAL NONE DETECTED (NONE DETECT)
[2019-03-26 00:08] LABS: BASO# 0.03 X1000 (0.0-0.2); BASO% 0.4 % (0.0-0.8); EOS# 0.05 X1000 (0.0-0.7); EOS% 0.7 % (0.0-10.0); HEMOGLOBIN 13.7 g/dL (12.0-16.0); IMM GRAN# 0.05 X1000 (0.0-0.04); IMM GRAN% 0.7 % (0.0-0.5); LYMPH# 2.46 X1000 (1.2-3.4); LYMPH% 33.2 % (20.5-51.1); MCH 28.3 PG (27-31); MCHC 32.6 g/dL (33-37); MCV 86.8 FL (81-99); MONO# 0.53 X1000 (0.11-0.59); MONO% 7.1 % (1.7-9.3); MPV 10.2 FL (7.4-10.4); NEUT% 57.9 % (42.2-75.2); PLT 209 X1000 (130-400); RBC 4.84 XMIL (4.2-5.4); RDW 14.8 % (11.5-14.5); WBC 7.42 X1000 (4.8-10.8)
[2019-03-26] MEDS ORDERED: NAROPIN 0.2% INJ ONE (01:47)
[2019-03-26] MEDS ORDERED: FENTANYL-BUPIV-NS 500 MCG-0.125% 250 ML EPIDURAL SCH (02:00)
[2019-03-26] MEDS ORDERED: CYTOTEC PO PRN (02:19)
[2019-03-26] MEDS ORDERED: AMBIEN PO PRN (02:19)
[2019-03-26] MEDS ORDERED: ATARAX PO PRN (02:19)
[2019-03-26] MEDS ORDERED: M-M-R II VACCINE SUBQ ONE (02:19)
[2019-03-26] MEDS ORDERED: BENADRYL IV PRN (02:19)
[2019-03-26] MEDS ORDERED: BENADRYL PO PRN (02:19)
[2019-03-26] MEDS ORDERED: PITOCIN IM PRN (02:19)
[2019-03-26] MEDS ORDERED: HYDROXYZINE IM PRN (02:19)
[2019-03-26] MEDS ORDERED: BOOSTRIX VACCINE IM ONE (02:19)
[2019-03-26] MEDS ORDERED: XYLOCAINE-MPF 1% INJ PRN (02:19)
[2019-03-26] MEDS ORDERED: MINERAL OIL PO PRN (02:19)
[2019-03-26] MEDS ORDERED: PERI MEDS (DERMOPLAST/NUPERCAINAL/TUCKS) MISC PRN (02:19)
[2019-03-26] MEDS ORDERED: PITOCIN 20 UNITS/NS 20 UNITS/1,000 ML IV.SOLN IV SCH (02:30)
[2019-03-26] MEDS: PITOCIN 30 UNITS/NS 30 UNIT/500 ML IV.SOLN IV SCH ×3 (02:40→10:30)
--- NOTE | 2019-03-26 04:29 | HISTORY AND PHYSICAL ---
HISTORY OF PRESENT ILLNESS: Ms. Claire is a 28-year-old G3, P1, 0-1-1 at 39 weeks and 2 days who presents to Labor and Delivery in active labor. The patient reports regular contractions. Good movement. Unsure of leakage of fluid. Admits to loss of mucus plug. Denies vaginal bleeding. Admits to uncomplicated . labs showed negative nonreactive RPR. Rubella immune. Gonorrhea and Chlamydia negative. Hepatitis B nonreactive. Hepatitis C nonreactive. HIV nonreactive. Urine drug screen positive for THC on 08/12/2018. Urine drug screen negative on 03/25/2019. MEDICATIONS: vitamins. ALLERGIES: Cefaclor, reaction hives. PAST MEDICAL HISTORY: Asthma. PAST SURGICAL HISTORY: Left salpingo-oophorectomy, tonsillectomy, adenoidectomy. FAMILY HISTORY: Grandmother with diabetes. SOCIAL HISTORY: Denies tobacco or alcohol use. Admits to marijuana use. OBSTETRICAL HISTORY: G3, P1, 0-1-1. One prior ectopic . One prior full-term delivery at 39 weeks. Baby weighed 7 pounds 6 ounces. Male with no complications. 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 Denies STD exposure. Menarche age 14. PHYSICAL EXAMINATION: VITAL SIGNS: Temperature 98.2 degrees Fahrenheit, pulse rate 91, respiration rate 20, blood pressure 142/81, O2 sats 98% on room air. Height 5 feet 5 inches, and weight 276 pounds. GENERAL: No acute distress. Alert, awake, and oriented x3. RESPIRATORY: Clear to auscultation bilaterally. Negative rhonchi, rales, or wheezing. CARDIOVASCULAR: Regular rate and rhythm. Positive S1, S2. ABDOMEN: Gravid. Nontender to palpation. Soft. VAGINAL: 9 cm dilated, 100% effaced, -1 station. Intact membranes. EXTREMITIES: Lower extremities with 1+ edema. Negative calf tenderness. LABORATORY: WBCs 7.42, hemoglobin 13.7, hematocrit 42, and platelets 209,000. ASSESSMENT: Ms. Claire is a 28-year-old G3, P1, 0-1-1 at 39 weeks 2 days who presents to Labor and Delivery in active labor. PLAN: 1. Admit to Labor and Delivery. 2. Obtain routine labor labs. 3. Continuous external monitoring. 4. Augmentation of labor with artificial rupture of membrane and/or Pitocin. 5. Patient counseled on risks, benefits, and alternatives of vaginal delivery. Risks not limited to infection, bleeding, vaginal laceration, vacuum delivery or emergency delivery. The patient understands risks and agrees to procedure. Estimated weight 7.5 pounds. 6. Anticipate vaginal delivery.
[2019-03-26] MEDS: MOTRIN PO PRN ×2 (04:59→15:50)
--- NOTE | 2019-03-26 05:07 | OPERATIVE NOTE ---
PROCEDURE DATE: 03/26/2019 PROCEDURE PERFORMED: Spontaneous vaginal delivery. SURGEON: Dr. Robel Garrett [employer] ARCHITECT: None. DESCRIPTION OF PROCEDURE: The patient delivered a viable 39 week 2 day girl weighing 8 pounds 9 ounces with Apgars of 8 and 9 at 1 and 5 minutes respectively. The vertex delivered over intact perineum. Anterior shoulders delivered with the assistance of maternal expulsive efforts and downward traction. The posterior shoulder was delivered with maternal expulsive efforts and upward traction. Remainder of fetus delivered, and placed on the patient's abdomen awaiting pediatricians assessed . No nuchal cord was noted status post delivery of vertex. Cord was cut and clamped. Cord blood was obtained for blood gas analysis. The placenta delivered spontaneously with a three-vessel cord intact. Uterine fundal massage was applied after delivery, and IV oxytocin was administered to assist with uterine contraction. Vagina, cervix, and perineum were assessed for lacerations. No lacerations were noted. Count was correct x2. Estimated Blood Loss 200 mL.
--- NOTE | 2019-03-26 08:11 | OB/GYN PROGRESS NOTE ---
- Subjective 28 yo PPD#0 s/p at 39w2d Patient seen and examined. This morning pt states she is feeling well with mild vulvar/vaginal soreness. Lochia is mild and bright red with no odor. Pt is well. She had concerns about waking baby for and was counseled that she should wake baby at 3h if baby does not wake up to feed. Pt denies fever, chills, chest pain, SOB, GI sx and calf pain. She plans for micronor for PP contraception. OB Physical Exam Vital Signs - 8 hr 03/26/19 02:15 03/26/19 02:25 03/26/19 02:35 Temperature 97.0 F L Pulse Rate 82 86 76 Respiratory Rate 18 18 18 Blood Pressure 146/66 134/62 160/70 03/26/19 02:45 03/26/19 02:55 03/26/19 03:05 Temperature Pulse Rate 71 76 71 Respiratory Rate 18 18 18 Blood Pressure 148/69 125/60 126/73 03/26/19 03:15 03/26/19 03:49 Temperature 98.5 F Pulse Rate 76 67 Respiratory Rate 18 18 Blood Pressure 127/88 138/82 - CONSTITUTIONAL General Appearance: appears well, no apparent distress - HEAD, EARS, NOSE, MOUTH & THROAT HENMT: normocephalic/atraumatic, moist mucous membranes - RESPIRATORY Respiratory: lungs clear, normal breath sounds, no pleuratic chest pain, no respiratory distress - CARDIOVASCULAR Cardiovascular: normal peripheral pulses, regular rate, rhythm, no edema - GASTROINTESTINAL (ABDOMEN) Abdominal Exam: normal bowel sounds, non tender, other (Uterus palpable at level of umbilicus, non-tender.) - MUSCULOSKELETAL Extremity: normal range of motion, non-tender, no pedal edema, no calf tenderness - NEUROLOGIC Neurologic: grossly normal - PSYCHIATRIC Psych/Mental Status: normal mood/affect Active Medications Generic Name Dose Route Start Last Admin Trade Name Freq PRN Reason Stop Dose Admin Acetaminophen 650 mg 03/25/19 23:40 Tylenol PO Q4-6H PRN PRN Headache Benzocaine 1 each 03/26/19 02:19 Aleida Meds (Dermoplast/Nupercainal/Tucks) MISC 3-4XDAY PRN PRN episiotomy/hemorrhoids Diphenhydramine HCl 25 mg 03/26/19 02:19 Benadryl PO Q4H PRN PRN Itching Famotidine 40 mg 03/25/19 23:40 Pepcid PO Q12H PRN PRN GI upset or indigestion Hydroxyzine HCl 50 mg 03/26/19 02:19 Atarax PO Q3-4H PRN PRN Nausea Hydroxyzine HCl 50 mg 03/26/19 02:19 Hydroxyzine IM Q3-4H PRN PRN Nausea Ibuprofen 800 mg 03/26/19 02:19 03/26/19 04:59 Motrin PO 800 mg Q8H PRN PRN Administration cramping Misoprostol 800 microgm 03/26/19 02:19 Cytotec PO PRN PRN Severe bleeding Senna/Docusate Sodium 1 each 03/26/19 21:00 Pericolace PO QHS MANNIE Zolpidem Tartrate 10 mg 03/26/19 02:19 Ambien PO HS PRN PRN Sleep Laboratory Results - last 24 hr 03/25/19 03/25/19 03/25/19 23:00 23:00 23:59 WBC RBC Hgb Hct MCV MCH MCHC RDW Std Deviation Plt Count MPV Immature Gran % (Auto) Neut % (Auto) Lymph % (Auto) Mcmullen % (Auto) Eos % (Auto) Baso % (Auto) Immature Gran # (Auto) Neut # (Auto) Lymph # (Auto) Mcmullen # (Auto) Eos # (Auto) Baso # (Auto) Urine Source VOIDED Urine Color YELLOW Urine Turbidity CLEAR Urine pH 6.5 Ur Specific Aurora 1.025 Urine Protein TRACE A Ur Glucose (Stick) NEGATIVE Ur Ketones (Stick) NEGATIVE Urine Blood NEGATIVE Urine Nitrite NEGATIVE Urine Bilirubin NEGATIVE Urobilinogen Dipstick 2 A Urine Leukocytes SMALL A Urine Opiates Screen NONE DETECTED Ur Oxycodone Screen NONE DETECTED Ur Methadone, Qual NONE DETECTED Ur Barbiturates Screen NONE DETECTED Ur Phencyclidine Scrn NONE DETECTED Ur Amphetamines Screen NONE DETECTED U Benzodiazepines Scrn NONE DETECTED Urine Cocaine Screen NONE DETECTED U Cannabinoids Screen NONE DETECTED RPR NON-REACTIVE 03/25/19 23:59 WBC 7.42 RBC 4.84 Hgb 13.7 Hct 42.0 MCV 86.8 MCH 28.3 MCHC 32.6 L RDW Std Deviation 14.8 H Plt Count 209 MPV 10.2 Immature Gran % (Auto) 0.7 H Neut % (Auto) 57.9 Lymph % (Auto) 33.2 Mcmullen % (Auto) 7.1 Eos % (Auto) 0.7 Baso % (Auto) 0.4 Immature Gran # (Auto) 0.05 H Neut # (Auto) 4.30 Lymph # (Auto) 2.46 Mcmullen # (Auto) 0.53 Eos # (Auto) 0.05 Baso # (Auto) 0.03 Urine Source Urine Color Urine Turbidity Urine pH Ur Specific Aurora Urine Protein Ur Glucose (Stick) Ur Ketones (Stick) Urine Blood Urine Nitrite Urine Bilirubin Urobilinogen Dipstick Urine Leukocytes Urine Opiates Screen Ur Oxycodone Screen Ur Methadone, Qual Ur Barbiturates Screen Ur Phencyclidine Scrn Ur Amphetamines Screen U Benzodiazepines Scrn Urine Cocaine Screen U Cannabinoids Screen RPR OB Assessment & Plan (1) Status post vaginal delivery Status: Acute Plan: 28 yo PPD# 0 s/p at 39w2d with asthma 1. HD stable, afebrile 2. Routine PP care 3. 4. Plans for micronor for PP contraception
[2019-03-26] MEDS: TYLENOL PO PRN (20:58)
[2019-03-26] MEDS: PERICOLACE PO SCH (21:00)
[2019-03-27] MEDS: MOTRIN PO PRN ×3 (00:41→19:14)
[2019-03-27 06:37] LABS: HEMATOCRIT 35.4 % (37.0-47.0); HEMOGLOBIN 11.3 g/dL (12.0-16.0); MCH 28.8 PG (27-31); MCHC 31.9 g/dL (33-37); MCV 90.3 FL (81-99); MPV 10.4 FL (7.4-10.4); RBC 3.92 XMIL (4.2-5.4); WBC 9.96 X1000 (4.8-10.8)
--- NOTE | 2019-03-27 08:03 | OB/GYN PROGRESS NOTE ---
- Subjective PP1 no cx vssaf s/nt -cce hgb 11.3 A PP1 Routine [facility] in am OB Physical Exam Vital Signs - 8 hr 03/27/19 04:00 Respiratory Rate 16 - CONSTITUTIONAL General Appearance: appears well Active Medications Generic Name Dose Route Start Last Admin Trade Name Freq PRN Reason Stop Dose Admin Acetaminophen 650 mg 03/25/19 23:40 03/26/19 20:58 Tylenol PO 650 mg Q4-6H PRN PRN Administration Headache Benzocaine 1 each 03/26/19 02:19 Aleida Meds (Dermoplast/Nupercainal/Tucks) MISC 3-4XDAY PRN PRN episiotomy/hemorrhoids Diphenhydramine HCl 25 mg 03/26/19 02:19 Benadryl PO Q4H PRN PRN Itching Famotidine 40 mg 03/25/19 23:40 Pepcid PO Q12H PRN PRN GI upset or indigestion Hydroxyzine HCl 50 mg 03/26/19 02:19 Atarax PO Q3-4H PRN PRN Nausea Hydroxyzine HCl 50 mg 03/26/19 02:19 Hydroxyzine IM Q3-4H PRN PRN Nausea Ibuprofen 800 mg 03/26/19 02:19 03/27/19 00:41 Motrin PO 800 mg Q8H PRN PRN Administration cramping Misoprostol 800 microgm 03/26/19 02:19 Cytotec PO PRN PRN Severe bleeding Senna/Docusate Sodium 1 each 03/26/19 21:00 03/26/19 21:00 Pericolace PO Not Given QHS MANNIE Zolpidem Tartrate 10 mg 03/26/19 02:19 Ambien PO HS PRN PRN Sleep Laboratory Results - last 24 hr 03/27/19 05:55 WBC 9.96 RBC 3.92 L Hgb 11.3 L D Hct 35.4 L MCV 90.3 MCH 28.8 MCHC 31.9 L RDW Std Deviation 15.0 H Plt Count 183 MPV 10.4
[2019-03-27] MEDS: PERICOLACE PO SCH ×2 (19:14→20:18)
[2019-03-27] MEDS: TYLENOL PO PRN (23:13)
[2019-03-28 09:08] VITALS: BP 127/74
== END 2019-03-28 10:45 | disposition home or self-care (01) | DRG 807 ==
LOC: P.ED 22:02 → OPLD 22:54 → LD 22:56
PROVIDERS: ADMIT Obstetrics & Gynecology; ATTEND Obstetrics & Gynecology